=== PATIENT | female | born 1985 | race Caucasian/White ===

== ENCOUNTER 2018-08-01 16:26 | Observation (INO) | payer OTHER ==
--- NOTE | 2018-08-01 19:26 | PDGENHP ---
History and Physical History and Physical: Care: [facility] HPI: Ana Russell is a [id number] with IUP@ 40-1 weeks that presents to L&D with complaints of decreased FM over the past 3 days. still reports feeling movements , just less, unsure if she is feeling 10/2 hours daily. She denies any regular contractions, states she had contractions on 07/30/18, but resolved. She denies any LOF, VB. EDC: 07/31/18 which is based on Ultrasound at 13 weeks. Her is complicated by: EDC by 13wk US, Rubella NI, declined 1hr GTT- BS x 1 week WNL, mild anemia Review of Systems: Constitutional: Denies any fever, chills, or fatigue HEENT: denies any visual changes, difficulty swallowing, hearing loss Cardiovascular: Denies any chest pain, palpitations, leg swelling Respiratory: denies any cough, wheezing, or shortness of breathe GI: Denies any nausea, vomiting, diarrhea, constipation : denies any dysuria, urgency, frequency, vaginal bleeding Musculoskeletal: denies any muscle or bone pain Skin: denies any rashes Neuro: denies any headache, seizures, lightheadedness, dizziness, or loss of consciousness Psychiatric: denies any depression, anxiety, or SI/HI thoughts HISTORY: Previous OB history: 6#0 Past medical history: noncontributory Past surgical history: oral surgery Social: Denies any alcohol, tobacco, or drug use. Family history: Not relevant Medications: PNV Allergies (list reaction): NKDA LABS: Rh: A+ ABS: Neg Rubella: nonImmune HbsAg: NR HIV: NR VDRL: NR 1hr: declined GC: Neg Chlamydia: Neg Pap: Normal GBS: negative PHYSICAL EXAM: Constitutional: WN, A&Ox3 HEENT: normocephalic atraumatic, supple Skin: Warm, dry, intact Heart: RRR, no murmur Chest: CTA-B Abdomen: Soft, nontender, gravid SVE: 2/60/-2 Extremities: no edema, negative homans sign Neuro: grossly normal Psych: normal affect assessment: FHT baseline 135 +accels, no decels, moderate variability Contractions: toco q irregular Assessment: 1) [id number] with IUP@ 40-1wks 2) no evidence of labor 3) GBS negative 4) Cat 1 FHR tracing 5) decreased FM, active now 6) AKILA 5.89cm Plan: 1) d/c home at this time 2) FKC and labor prec discussed 3) keep next sched appt Wednesday08/03/18
== END 2018-08-01 18:30 | disposition home or self-care (01) ==
LOC: FLD 16:26
PROVIDERS: ADMIT Advanced Practice Midwife; ATTEND Advanced Practice Midwife
DX: O36.8130 Decreased fetal movements, third trimester, not applicable or unspecified (principal); O48.0 Post-term pregnancy; O99.013 Anemia complicating pregnancy, third trimester; D64.9 Anemia, unspecified; Z3A.40 40 weeks gestation of pregnancy
CPT/HCPCS: G0378 ×2

== ENCOUNTER 2018-08-01 23:21 | Observation (INO) | payer OTHER | END 2018-08-02 02:30 | disposition home or self-care (01) | LOC: FLD 23:21 | PROVIDERS: ADMIT Advanced Practice Midwife; ATTEND Advanced Practice Midwife | DX: O48.0 Post-term pregnancy (principal); Z3A.40 40 weeks gestation of pregnancy | CPT/HCPCS: 59025; G0378 ==

== ENCOUNTER 2018-08-02 16:57 | Inpatient (IN) | payer OTHER ==
[2018-08-02] MEDS ORDERED: LR 1,000 ML IV PRN (17:21)
[2018-08-02] MEDS ORDERED: OLIVE OIL 118 ML BTL MISC PRN (17:21)
[2018-08-02] MEDS ORDERED: MISOPROSTOL 200 MCG TAB PO PRN (17:21)
[2018-08-02] MEDS ORDERED: TERBUTALINE SULFATE 1 MG/ML VIAL IV PRN (17:21)
[2018-08-02] MEDS ORDERED: IBUPROFEN 600 MG TAB PO PRN (17:21)
[2018-08-02] MEDS ORDERED: OXYTOCIN/RINGERS LACTATE 1,000 ML IV PRN (17:21)
[2018-08-02] MEDS ORDERED: LIDOCAINE 1% 300 MG/30 ML SDV SC PRN (17:21)
[2018-08-02] MEDS ORDERED: EPSOM SALT 454 GM TP PRN (17:21)
[2018-08-02] MEDS ORDERED: AMMONIA AROMATIC 1 EACH AMP IH PRN (17:21)
--- NOTE | 2018-08-02 17:21 | PDGENHP ---
History and Physical History and Physical: Care: [facility] HPI: Ana Russell is a [id number] with IUP@ 40-1 weeks that presents to L&D with strong uterine contractions. She denies any LOF, VB. EDC: 07/31/18 which is based on Ultrasound at 13 weeks. Her is complicated by: EDC by 13wk US, Rubella NI, declined 1hr GTT- BS x 1 week WNL, mild anemia Review of Systems: Constitutional: Denies any fever, chills, or fatigue HEENT: denies any visual changes, difficulty swallowing, hearing loss Cardiovascular: Denies any chest pain, palpitations, leg swelling Respiratory: denies any cough, wheezing, or shortness of breathe GI: Denies any nausea, vomiting, diarrhea, constipation : denies any dysuria, urgency, frequency, vaginal bleeding Musculoskeletal: denies any muscle or bone pain Skin: denies any rashes Neuro: denies any headache, seizures, lightheadedness, dizziness, or loss of consciousness Psychiatric: denies any depression, anxiety, or SI/HI thoughts HISTORY: Previous OB history: 6#0 Past medical history: noncontributory Past surgical history: oral surgery Social: Denies any alcohol, tobacco, or drug use. Family history: Not relevant Medications: PNV Allergies (list reaction): NKDA LABS: Rh: A+ ABS: Neg Rubella: nonImmune HbsAg: NR HIV: NR VDRL: NR 1hr: declined GC: Neg Chlamydia: Neg Pap: Normal GBS: negative PHYSICAL EXAM: Constitutional: WN, A&Ox3 HEENT: normocephalic atraumatic, supple Skin: Warm, dry, intact Heart: RRR, no murmur Chest: CTA-B Abdomen: Soft, nontender, gravid SVE: 5/80/-1 Extremities: no edema, negative homans sign Neuro: grossly normal Psych: normal affect assessment: FHT baseline 135 +accels, no decels, moderate variability Contractions: toco q irregular Assessment: 1) [id number] with IUP@ 40-2 wks 2) active labor 3) GBS negative 4) Cat 1 FHR tracing Plan: 1) admit L&D 2) anticipate vag delivery/
[2018-08-02] MEDS ORDERED: ACETAMINOPHEN 325 MG TAB PO PRN (18:07)
--- NOTE | 2018-08-02 18:12 | OBDEL ---
Info Type: Vaginal Presentation at Delivery: Vertex L&D Analgesia/Anesthesia Type: None GBS+: No - Hospital Course Intrapartum: 08/02/18 18:09 progressed rapidly to complete after admission, FHT reassuring with intermittent monitoring Indications for Delivery: Spontaneous Labor, SROM Vaginal Delivery - Delivery Provider Delivery Physician/CNM: Edda Moon - Labor and Delivery Onset of Contractions Date: 08/02/18 Onset of Contractions Time: 13:30 Onset of Contractions Type: Spontaneous Rupture of Membranes Date: 08/02/18 Rupture of Membranes Time: 17:35 Rupture of Membranes Type: Spontaneous Amniotic Fluid Color: Clear Dilation Complete Date: 08/02/18 Dilation Complete Time: 17:35 Placenta Delivery Date: 08/02/18 Placenta Delivery Time: 17:46 Total Hours of Labor: 4 Laceration: Other (Specify) (none) Vaginal Sponge Count Correct: Yes Vaginal Needle Count Correct: Yes Vaginal Sweep Performed: Yes EBL: 100 Delivery Events: None Data HERMINIO: 07/31/18 Gestational Age: 40 week(s) and 2 day(s) Rehman Delivery Date: 08/02/18 Delivery Time: 17:38 Sex of Infant: Female Score (1 Min): 8 Score (5 Min): 8 ICD10 Worksheet Patient Problems: Problems Problem Status Onset (normal spontaneous vaginal delivery) Acute Acute - ICD10 Problem Qualifiers (1) (normal spontaneous vaginal delivery)
[2018-08-03] MEDS: IBUPROFEN 600 MG TAB PO PRN ×2 (08:59→17:31)
--- NOTE | 2018-08-03 11:56 | OBPP ---
Progress Note Assessment/Plan: Assessment: 33 y/o s/p ppd #1 Plan: Routine pp care Anticipate discharge home tomorrow 08/03/18 15:27 Subjective/ Course: 08/03/18 15:28 Feeling good this am. going well, pain well controlled with oral pain meds, tolerating activity and regular diet. Voiding without difficulty, vag bleeding wnl Objective: Temp Pulse Resp BP Pulse Ox 36.5 C 57 L 14 148/87 H 95 08/03/18 08:00 08/03/18 08:00 08/03/18 08:00 08/03/18 08:00 08/03/18 08:00 Uterine Position/Fundal Height: Umbilicus -1 Uterine Tone: Firm Physical Exam - Physical Exam EENT: normal ENT inspection Neck: non-tender Respiratory: normal breath sounds Cardiac/Chest: regular rate, rhythm Abdomen: non-tender, soft Extremities: normal range of motion Skin: normal color, warm/dry Neuro/Psych: alert, normal mood/affect, oriented x 3
[2018-08-04 09:01] VITALS: BP 130/86
[2018-08-04] MEDS: IBUPROFEN 600 MG TAB PO PRN (10:08)
--- NOTE | 2018-08-04 10:49 | OBPP ---
Progress Note Assessment/Plan: Assessment: Plan: 08/04/18 10:49 PPD #2; establishing P: Discharge home today; reviewed discharge instructions. Will follow up in office week . Subjective/ Course: 08/03/18 15:28 Feeling good this am. going well, pain well controlled with oral pain meds, tolerating activity and regular diet. Voiding without difficulty, vag bleeding wnl 08/04/18 10:48 Doing very well. Bleeding minimal. Baby nursing well. Pain well controlled with PRN ibuprofen. Ready to discharge home today Objective: Temp Pulse Resp BP Pulse Ox 36.6 C 61 16 130/86 H 96 08/04/18 08:00 08/04/18 08:00 08/04/18 08:00 08/04/18 08:00 08/04/18 08:00 Breasts full; nipples intact bilaterally Uterine Position/Fundal Height: At Umbilicus Uterine Tone: Firm
--- NOTE | 2018-08-04 10:50 | OBGCSDC ---
General Delivery Information - General Info : 2 Para: 2 Abortions: 0 Type: Vaginal L&D Analgesia/Anesthesia Type: None Admission Date: 08/02/18 - Hospital Course Intrapartum: 08/02/18 18:09 progressed rapidly to complete after admission, FHT reassuring with intermittent monitoring : 08/03/18 15:28 Feeling good this am. going well, pain well controlled with oral pain meds, tolerating activity and regular diet. Voiding without difficulty, vag bleeding wnl 08/04/18 10:48 Doing very well. Bleeding minimal. Baby nursing well. Pain well controlled with PRN ibuprofen. Ready to discharge home today Vaginal - Delivery Provider Delivery Physician/CNM: Edda Moon - Diagnosis Labor: Spontaneous Rupture of Membranes Type: Spontaneous Amniotic Fluid Color: Clear Laceration: Other (Specify) (none) Delivery Events: None - Delivery EBL: 100 Data HERMINIO: 07/31/18 Gestational Age: 40 week(s) and 4 day(s) Rehman Delivery Date: 08/02/18 Delivery Time: 17:38 Sex of : Female [place] Weight (gm): 3022 g Score (1 Min): 8 Score (5 Min): 8 Discharge Information - Discharge Information Condition: Good Instruction/Follow Up: Two Weeks, Four Weeks, Six Weeks
== END 2018-08-04 11:25 | disposition home or self-care (01) | DRG 807 ==
LOC: FLD 16:57 → FOB 20:15
PROVIDERS: ADMIT Advanced Practice Midwife; ATTEND Advanced Practice Midwife
PROC: 10E0XZZ Delivery of Products of Conception, External Approach (ICD-10-PCS; principal; 2018-08-02)
DX: O62.3 Precipitate labor (principal); Z3A.40 40 weeks gestation of pregnancy; Z37.0 Single live birth